=== PATIENT | male | born 1990 | race Caucasian/White ===

== ENCOUNTER 2023-06-11 01:34 | Day surgery (SDC) | payer OTHER, SELFPAY ==
[2023-06-03 15:48] VITALS: BMI 31.6
--- NOTE | 2023-06-03 16:12 | SUR.PREOP ---
Report to the Outpatient Waiting Room, entrance under the green pavilion located off [facility], at time 1230 on date 06/11/2023. Planned Procedure Time: 1430. Time changes happen often and if your time is changed the preop area will call you the afternoon before. - You and your visitor will be asked to self-screen and do not enter if you have any COVID symptoms. - A mask is optional within the hospital at this time. Patients may have clear liquids (water, carbonated beverages, clear teas, apple juice) until 3 hours prior to surgery with a maximum of 20 ounces- 1130. - No food from midnight until time of surgery - Infants may have breast milk until 4 hours before surgery, infant formula 6 hours prior to surgery. - Children will be allowed to drink immediately following surgery. If applicable, please bring a bottle or sippy cup to assist with drinking. Juice, water, soda, and popsicles are readily available. For infants on formula, please bring formula the day of surgery. Pacifiers are allowed. Take the following medications with a SIP of water the morning of surgery: N/A DO NOT STOP ANY OF YOUR OTHER PRESCRIPTION MEDICATIONS PRIOR TO SURGERY ?EXCEPT THE FOLLOWING Medications to discontinue per physician: Vitamins, HCG and Testosterone Injections Date to take last dose: Vitamins- 06/07 HCG,Testosterone 06/02 Please no make-up, nail maltese, hairspray, perfume, deodorant, or body powder the day of surgery. No jewelry (including any body piercings) or valuables the day of surgery, leave them at home. Please take a shower or bath the night before, or the morning of, surgery with an antibacterial soap. Wear comfortable, loose fitting clothing. Children are encouraged to wear pajamas. - Jewelry must be removed prior to entering the operating room. Rings and piercings that are not removed may be cut off. - The hospital will not accept responsibility for valuables. - Please leave all valuables, including medications, at home the day of surgery. If you are going home after surgery, a licensed compactor driver must drive you home. - NO public transportation without another adult if you receive anesthesia. - We recommend that an adult stay with you for 24 hours following discharge. - We also recommend that you do not drive, make important decision, drink alcoholic beverages, or take any drugs that were not prescribed by your health care provider for at least 24 hours after your discharge time. For Pediatric surgeries, we recommend two adults accompany the child home. Follow any additional instructions given to you from your surgeon. If you or anyone in your household have experienced Covid symptoms in the past week, please notify your surgeon or the nurse liaison at the phone number below for possible testing. Telephone instructions given to patient and asked if any additional questions and then verbalized understanding. Patient advised to call surgeon office or pre surgery nurse liaison [phone] if any additional questions.
--- NOTE | 2023-06-10 11:25 | WPDANESEPPF ---
Anes - Initial Pre Proc Eval Procedure: Operation Date: 06/11/23 14:30 Proposed Procedures p Liposuction Bilateral Chest with Gland Removal - Solis Leiva MD Date/Time: 06/10/23 11:25 Surgeon: Solis Leiva MD Pre Op Diagnosis: Gynecomastia Patient Data Age: 33 Gender: M Height: 1.73 m Weight: 94.5 kg Allergies Allergy/AdvReac Type Severity Reaction Status Date / Time No Known Allergies Allergy Mild Verified 06/11/23 13:15 Home Medications Medication Instructions Recorded Confirmed Type chorionic gonadotropin, human 10,000 unit IM WEEKLY 06/03/23 06/11/23 History 10,000 unit IM powder for solution (Pregnyl) multivitamin with minerals-folic 0.4 tablet PO DAILY 06/03/23 06/11/23 History acid 0.4 mg tablet testosterone enanthate 50 mg/0.5 50 mg subcut WEEKLY 06/03/23 06/11/23 History mL subcutaneous auto-injector Patient hx anesthesia problems: none Family hx anesthesia problems: none Results Review: All pre-operative results and documents have been reviewed as part of the pre-operative evaluation. [facility] Past Medical History Medical History BMI 30.0-30.9,adult Gynecomastia Loose stools Screening for lipid disorders Surgical History Surgical [facility] Social History Social History Smoking status: Never smoker Alcohol intake: current Alcohol use details: 16 per month Substance use: current Substance use type: marijuana Last use: 05/29/2023 Living arrangements: other Spiritual care concerns: No Anes - Eval Final PreProcedure Day of Procedure 06/10/23 11:25 Patient weight: obese Heart: regular rate and rhythm Lungs: clear to auscultation Airway: Mallampati scale class II Neurological: alert and oriented Last oral intake: >/= 8 hours ASA classification: II Emergent: no Anesthetic plan: proceed Anesthesia type and monitoring: general LMA and standard monitoring Results Review: All pre-operative results and documents have been reviewed as part of the pre-operative evaluation. Informed Consent: The patient's anesthetic plan and its attendant risks and benefits were discussed with the patient/family/POA. Questions were solicited and answers provided to the satisfaction of the patient/family/POA.
[2023-06-11] VITALS (10 sets, daily range): BP systolic 114–143; BP diastolic 58–90; PULSE 67–81; RESP 12–16; TEMP 36.3–36.7; O2SAT 98–100
--- NOTE | 2023-06-11 13:16 | P.OP_ITS ---
Procedure Note - Detailed Date of Procedure 06/11/23 Pre-op Diagnosis Gynecomastia Post-op Diagnosis Same Procedure Performed Excision gynecomastia Surgeon Solis Leiva MD Anesthesia General Description of Procedure He is here today for the above procedure. Previously and again today the risks, benefits, alternatives were discussed in extensive detail. I wanted him to be very realistic about the risks involved as well as expectations. We discussed aftercare and what to monitor for. Discussed realistic expectations of outcome. Made sure I answered all of questions to satisfaction today and consent was obtained. He was marked in the preoperative holding area with his verification. The patient was taken to the operating room placed supine on the operating table. Anesthesia was provided by anesthesiology. Prepped and draped in a standard sterile fashion. A surgical time-out was taken. Stab incisions were made and I tumesced with a tumescent solution. A 15 blade was used to make an inferior areolar incision and dissection continued until the gland was identified. This was excised. Irrigated copiously with saline solution and verified a strict hemostasis. This was tailor tacked into place. I then proceeded with suction lipectomy based on S.A.F.E. technique using a 4mm basket cannula. This was in multiple planes and passes and based on pre- operative planning, intraoperative observation, and rolling pinch test which was in full agreement. He was placed in a sitting position to verify final contour. Incision was closed with 2-0 Vicryl, 3-0 Monocryl, and running subcuticular 4-0 Monocryl. Port sites closed with 4-0 Nylon. Dressing was placed. Patient was awoke and taken to PACU without difficulty. All instrument and sponge counts were correct at the end of the case. Estimated Blood Loss 25 Drains No Packing No Pathology None sent Complications No immediate complications Condition Stable Disposition PACU
--- NOTE | 2023-06-11 13:16 | WPDHPUPDATE1 ---
History and Physical Update Update Date/Time: 06/11/23 13:16 History and Physical has been reviewed, including an updated exam of the patient. There are NO changes in the patient's condition. Risks, benefits, and alternatives have been discussed and questions answered. Patient agrees to proceed with procedure.
[2023-06-11] MEDS: LACTATED RINGERS 1,000 ML 30 ML IV CONT ×2 (15:15)
[2023-06-11] MEDS: fentaNYL CITRATE INJ (*CRX) 100 MCG/2 ML VIAL 25 MCG IV PUSH ×4 (15:36→15:47)
[2023-06-11] MEDS: oxyCODONE HCL (*CRX) 5 MG TAB IR PO (16:49)
[2023-06-11] MEDS: ONDANSETRON HCL ODT 4 MG TABLET PO (17:39)
== END 2023-06-11 17:40 | disposition home or self-care (01) ==
PROVIDERS: PCP Family Medicine; Visit Provider Surgery Plastic and Reconstructive Surgery
PROC: (CPT 19300; principal; 2023-06-11 14:30)
DX: N62 Hypertrophy of breast (principal); F12.90 Cannabis use, unspecified, uncomplicated; E66.9 Obesity, unspecified; Z68.31 Body mass index [BMI] 31.0-31.9, adult
CPT/HCPCS: 19300; A9270; J0171; J0690; J1100; J2250; J2405; J2704; J3010; J7120

== ENCOUNTER 2024-02-05 10:53 | Outpatient (CLI) | payer BC, SELFPAY ==
[2024-02-05 11:56] LABS: Hematocrit 53.1 % (42.0-52.0); Hemoglobin 18.3 g/dL (14.0-18.0); Mean Corpuscular HGB Conc 34.5 g/dl (32-36); Mean Corpuscular Hemoglobin 28.9 pg (26-34); Mean Corpuscular Volume 83.8 fl (80-100); Mean Platelet Volume 10.2 fl (7.4-10.4); Platelet Count Result 255 k/mm3 (150-375); Red Blood Count 6.34 M/mm3 (4.6-6.20); Red Cell Distribution Width 13.4 % (11.5-14.5); White Blood Count 9.9 K/mm3 (4.5-10.0)
[2024-02-05 12:18] LABS: Alanine Aminotransferase 34 U/L (6-50); Albumin Level 4.8 g/dL (3.5-5.1); Alkaline Phosphatase 66 U/L (38-126); Anion Gap 6 mmol/L (4-12); Aspartate Amino Transferase 38 U/L (17-59); Bilirubin,Total 1.2 mg/dL (0.2-1.3); Blood Urea Nitrogen 13 mg/dL (9-20); CRP < 0.5 mg/dL (<1.0); Calcium 9.6 mg/dL (8.4-10.2); Carbon Dioxide 29 mmol/L (22-30); Chloride 102 mmol/L (98-107); Estimated Glomerular Filt Rate > 60; Glucose 84 mg/dL (65-110); Potassium 4.6 mmol/L (3.4-5.0); Sodium 137 mmol/L (137-145)
[2024-02-05 13:41] LABS: Erythrocyte Sedimentation Rate 1 mm/hr (0-20)
[2024-02-08 18:19] LABS: Immunoglobulin A 300 mg/dL (47-310); TTG IGA AB <1.0 U/mL (<15.0)
== END 2024-02-05 10:54 | disposition home or self-care (01) ==
LOC: ANHLAB 10:54
PROVIDERS: PCP Family Medicine; Visit Provider Nurse Practitioner Family
DX: K58.0 Irritable bowel syndrome with diarrhea (principal); R19.5 Other fecal abnormalities
CPT/HCPCS: 36415; 80053; 82784; 84443; 85027; 85652; 86140; 86364

== ENCOUNTER 2024-03-09 03:07 | Day surgery (SDC) | payer BC, SELFPAY ==
[2024-02-24 09:50] VITALS: BMI 32.0
[2024-03-09 11:00] VITALS: BP 135/78; PULSE 71; RESP 20; TEMP 35.9; O2SAT 99
[2024-03-09] MEDS: LACTATED RINGERS 1,000 ML 150 ML IV CONT (11:08)
--- NOTE | 2024-03-09 11:09 | P.PNAN_ITS ---
Anes - Initial Pre Proc Eval Procedure: Operation Date: 03/09/24 13:00 Proposed Procedures p Colonoscopy - Sami Salvador MD Date/Time: 03/09/24 11:09 Surgeon: Sami Salvador MD Pre Op Diagnosis: Irritable bowel syndrome with diarrhea Patient Data Age: 33 Gender: M Height: 1.73 m Weight: 90.9 kg Last Vital Signs Temp 96.6 F L 03/09/24 11:00 Pulse 71 03/09/24 11:00 Resp 20 03/09/24 11:00 BP 135/78 03/09/24 11:00 Pulse Ox 99 03/09/24 11:00 O2 Del Method Room Air 03/09/24 11:00 Allergies Allergy/AdvReac Type Severity Reaction Status Date / Time No Known Allergies Allergy Mild Verified 03/09/24 10:57 Home Medications Medication Instructions Recorded Confirmed Type multivitamin with minerals-folic 0.4 tablet PO DAILY 06/03/23 02/24/24 History acid 0.4 mg tablet chorionic gonadotropin, human 500 unit IM 2XW 01/06/24 02/24/24 History 10,000 unit IM powder for solution testosterone cypionate 200 mg/mL 150 mg IM WEEKLY 01/06/24 02/24/24 History intramuscular oil Patient hx anesthesia problems: none Family hx anesthesia problems: none Results Review: All pre-operative results and documents have been reviewed as part of the pre- operative evaluation. [facility] Past Medical History Medical History BMI 30.0-30.9,adult BMI 31.0-31.9,adult Gynecomastia Loose stools Screening for lipid disorders Surgical History Surgical History Hx of LASIK Social History Social History (System 02/05/24 @ 09:39 by Nellie Hernadez) Smoking status: Never smoker Second hand tobacco smoke exposure: No Alcohol intake: current Drinks per week: 5 Alcohol use details: 16 per month Substance use: current Substance use type: marijuana Other substance usage details: daily at bedtime Last use: 05/29/2023 Do You Feel Safe in your Home?: Yes Lack of Transportation: No Lack of Food: Never True Current Housing: I Have Housing Concerned About Future Housing: No Difficulty Paying Gas/Electric Bills: No Difficulty Paying for Meds: No Currently Unemployed: No Education: Associate Degree Living arrangements: with family Spiritual care concerns: No Anes - Eval Final PreProcedure Day of Procedure 03/09/24 11:09 Patient weight: obese Heart: regular rate and rhythm Lungs: clear to auscultation Airway: Mallampati scale class II Neurological: alert and oriented Last oral intake: >/= 8 hours ASA classification: II Emergent: no Anesthetic plan: proceed Anesthesia type and monitoring: general GIVS and standard monitoring Results Review: All pre-operative results and documents have been reviewed as part of the pre- operative evaluation. Informed Consent: The patient's anesthetic plan and its attendant risks and benefits were discussed with the patient/family/POA. Questions were solicited and answers provided to the satisfaction of the patient/family/POA.
--- NOTE | 2024-03-09 11:17 | P.HP_ITS ---
History of Present Illness History of Present Illness Consent: Risks, benefits, and alternatives have been discussed and questions answered. Patient agrees to proceed with procedure. Chief complaint: Irritable bowel syndrome with diarrhea Narrative: Uday Singh Jr. is a 33 year old male with years of loose stools, never had colonoscopy, serology for celiac negative. Review of Systems Review of Systems: All systems reviewed & are unremarkable except as noted in HPI and below PMFSH Past Medical History Medical History BMI 30.0-30.9,adult BMI 31.0-31.9,adult Gynecomastia Loose stools Screening for lipid disorders Surgical History Surgical History Hx of [facility] Social History Social History (System 02/05/24 @ 09:39 by Nellie Hernadez) Smoking status: Never smoker Second hand tobacco smoke exposure: No Alcohol intake: current Drinks per week: 5 Alcohol use details: 16 per month Substance use: current Substance use type: marijuana Other substance usage details: daily at bedtime Last use: 05/29/2023 Do You Feel Safe in your Home?: Yes Lack of Transportation: No Lack of Food: Never True Current Housing: I Have Housing Concerned About Future Housing: No Difficulty Paying Gas/Electric Bills: No Difficulty Paying for Meds: No Currently Unemployed: No Education: Associate Degree Living arrangements: with family Spiritual care concerns: No Meds Home Medications and Allergies Home Medications Medication Instructions Recorded Confirmed Type multivitamin with minerals-folic 0.4 tablet PO DAILY 06/03/23 02/24/24 History acid 0.4 mg tablet chorionic gonadotropin, human 500 unit IM 2XW 01/06/24 02/24/24 History 10,000 unit IM powder for solution testosterone cypionate 200 mg/mL 150 mg IM WEEKLY 01/06/24 02/24/24 History intramuscular oil Allergies Allergy/AdvReac Type Severity Reaction Status Date / Time No Known Allergies Allergy Mild Verified 03/09/24 10:57 Vital Signs Vital Signs - 24 hr 03/09/24 11:00 Temperature 96.6 F L Pulse Rate 71 Respiratory Rate 20 Blood Pressure 135/78 Pulse Oximetry 99 Oxygen Delivery Room Air Exam Const: General: comfortable and no acute distress HENMT: Face/Nose/Sinus: Normal nares present Eyes: General: appearance normal, both eyes and all related structures Neck: Neck: no JVD Resp: Auscultation: clear to auscultation bilaterally Cardio: Rate: regular rate Rhythm: regular rhythm GI: Inspection: non-distended GI Palp: Yes Soft to palpation Skin: General skin exam: normal color Neuro: General: gait normal Speech: normal speech Extrem: General: normal to inspection Psych: Mental Status: mental status grossly normal Assessment and Plan Assessment and plan (1) Loose stools: Code(s): R19.5 - Other fecal abnormalities Status: Acute Assessment and Plan: colonoscopy with bx probably ibs-d
[2024-03-09 11:31] VITALS: BP 98/50; PULSE 92; RESP 21; O2SAT 97
[2024-03-09 11:41] VITALS: BP 115/63; PULSE 77; RESP 20; O2SAT 100
[2024-03-09 11:51] VITALS: BP 103/66; PULSE 81; RESP 21; O2SAT 100
== END 2024-03-09 12:00 | disposition home or self-care (01) ==
PROVIDERS: PCP Family Medicine; Referring Provider Nurse Practitioner Family; Visit Provider Internal Medicine Gastroenterology
PROC: 0DJD8ZZ Inspection of Lower Intestinal Tract, Via Natural or Artificial Opening Endoscopic (ICD-10-PCS; CPT 45378; principal; 2024-03-09 13:00)
DX: K58.0 Irritable bowel syndrome with diarrhea (principal); K64.8 Other hemorrhoids; F12.90 Cannabis use, unspecified, uncomplicated; E66.9 Obesity, unspecified; Z68.30 Body mass index [BMI] 30.0-30.9, adult; Z98.890 Other specified postprocedural states
CPT/HCPCS: 45380; 88305; J2704; J7120

== ENCOUNTER 2024-06-25 18:39 | Emergency (ER) | payer BC, SELFPAY ==
[2024-06-25 18:47] VITALS: BP 144/76; PULSE 77; RESP 16; TEMP 36.4; O2SAT 97
--- NOTE | 2024-06-25 19:04 | ED.WOUNDLAC ---
HPI - Wound/Laceration General Chief Complaint: Wound/Laceration Stated Complaint: Right Hand Finger Laceration Time Seen by Provider: 06/25/24 19:04 Source: patient Mode of arrival: ambulatory Limitations: no limitations History of Present Illness HPI narrative: 34-year-old male presented for complaint of laceration to the right index finger sustained about an hour prior to arrival. He cut it on a piece of metal while at work. last tetanus was within last 2 years. Bleeding controlled on arrival. Denies nail involvement. Related Data Home Medications Medication Instructions Recorded Confirmed multivitamin with minerals-folic 0.4 tablet PO DAILY 06/03/23 06/25/24 acid 0.4 mg tablet chorionic gonadotropin, human 500 unit IM 2XW 01/06/24 06/25/24 10,000 unit IM powder for solution testosterone cypionate 200 mg/mL 150 mg IM WEEKLY 01/06/24 06/25/24 intramuscular oil Allergies Allergy/AdvReac Type Severity Reaction Status Date / Time No Known Allergies Allergy Mild Verified 06/25/24 19:07 Review of Systems Review of Systems: CONSTITUTIONAL: Denies body aches, fever, chills, or sweats. CARDIOVASCULAR: Denies chest pain, palpitations, or edema. RESPIRATORY: Denies cough or dyspnea. SKIN: reports finger lac MUSCULOSKELETAL: Denies back pain, joint pain, or myalgia. NEUROLOGIC: Denies headache, numbness, tingling, or weakness. [facility] Past Medical History Medical History BMI 30.0-30.9,adult BMI 31.0-31.9,adult Gynecomastia Hemorrhoids Loose stools Screening for lipid disorders Surgical History Surgical History [facility] Social History Social History Smoking status: Never smoker Second hand tobacco smoke exposure: No Alcohol intake: current Drinks per week: 5 Alcohol use details: 16 per month Substance use: current Substance use type: marijuana Other substance usage details: daily at bedtime Last use: 05/29/2023 Do You Feel Safe in your Home?: Yes Lack of Transportation: No Lack of Food: Never True Current Housing: I Have Housing Concerned About Future Housing: No Difficulty Paying Gas/Electric Bills: No Difficulty Paying for Meds: No Currently Unemployed: No Education: Associate Degree Living arrangements: with family Spiritual care concerns: No Comments At time of signature, I have reviewed and agree with nursing past medical, surgical, social and family history unless otherwise noted. Please see nursing chart for further information. There is no relevant family history pertinent to the presenting complaint Exam Narrative: GENERAL: Well-appearing ENT: Mucous membranes moist. Oropharynx without edema, erythema or lesions. CHEST: Clear to auscultation. HEART: Regular rate and rhythm. SKIN: Warm, dry. Right index finger with 2cm laceration to distal phalanx, approx 0.5cm area creating slight flap, wound edges approximate. bleeding controlled NEURO: Alert and oriented x3. Course Course Emergency Course: Patient is aware of diagnosis, understands and agrees to treatment plan. Anticipatory guidance given. Patient agrees to follow-up as directed and is aware of reasons to seek care at the emergency department. Portions of this record may have been created with voice recognition software Level of Care: Express Care Visit Vital Signs Vital signs: Vital Signs Temperature 97.6 F 06/25/24 18:47 Pulse Rate 77 06/25/24 18:47 Respiratory Rate 16 06/25/24 18:47 Blood Pressure 144/76 H 06/25/24 18:47 Pulse Oximetry 97 06/25/24 18:47 Oxygen Delivery Room Air 06/25/24 18:47 Temperature 97.6 F 06/25/24 18:47 Pulse Rate 77 06/25/24 18:47 Respiratory Rate 16 06/25/24 18:47 Blood Pressure 144/76 H 06/25/24 18:47 Pulse Oximetry 97 08/1
== END 2024-06-25 20:12 | disposition home or self-care (01) ==
PROVIDERS: Emergency Provider Nurse Practitioner Family; PCP Family Medicine
DX: S61.210A Laceration without foreign body of right index finger without damage to nail, initial encounter (principal); W45.8XXA Other foreign body or object entering through skin, initial encounter; Y99.0 Civilian activity done for income or pay
CPT/HCPCS: 12001; 99213; G0463